=== PATIENT | female | born 1990 | race Caucasian/White ===

== ENCOUNTER 2016-11-01 16:22 | Emergency (ER) | payer OTHER ==
[~2016-11-01] VITALS: Ht 160 cm; Wt 79.4 kg
--- NOTE | ~2016-11-01 | CR72 ---
[facility] A Service of [facility] & [facility] RADIOLOGY TEXT RESULTS PATIENT: CL LOCK LOCATION: [facility] : 89 UNIT #: [id number] AGE: [address]: Epi Snider MD SEX: F ORDER DR: [id number] [facility] [address] [place], [place] [address] [id number] MR#: [id number] Acc #: [id number] NAME: CL LOCK : 1990 SEX: F STUDY DATE/TIME: 11/01/2016 20:06 UNIT: [facility] ROOM: STUDY DESCRIPTION: CR Chest Single View Portable Attending Physician: Epi Snider M.D. Ordering Physician: Epi Snider M.D. Primary Care Physician: Joseph Corona MEDICAL IMAGING REPORT This report is preliminary unless electronic signature is present EXAM Portable chest 11/01/2016 HISTORY Chest pain, chest tightness and shortness breath beginning 4 days ago. FINDINGS A single AP portable view of the chest shows both lungs to be clear. The heart is normal in size. The mediastinal contour is normal. No significant bone abnormalities are seen. IMPRESSION Normal portable chest. Dictated by... Selvin Melgoza M.D. THIS IS AN ELECTRONICALLY VERIFIED REPORT Selvin Melgoza M.D. at 11/02/2016 2:14 PM EMERSON/bulmaro TD: 11/02/2016 10:41 JOB #: [id number] MEDICAL IMAGING REPORT Page 1 of 1 COPY
--- NOTE | ~2016-11-01 | EKG ---
PATIENT: CL LOCK UNIT #: [id number] Ventricular Rate: 77 BPM Atrial Rate: 77 BPM P-R Interval: 164 ms QRS Duration: 80 ms Q-T Interval: 432 ms QTC Calculation(Bezet): 488 ms P [place]: 37 degrees Calculated R [place]: 23 degrees Calculated T [place]: 25 degrees Diagnosis Line: Normal sinus rhythm Diagnosis Line: Prolonged QT Diagnosis Line: Abnormal ECG Diagnosis Line: No previous ECGs available Diagnosis Line: Confirmed by LINO DORADO MD ([id number]) on Diagnosis Line: 11/02/2016 5:08:24 PM INTERPRETING MD: ESTRADA WANG
[2016-11-01 19:58] LABS: BASOPHIL% 0.3 % (0-2.5); EOSINOPHIL# 0.1 X10e3 (0-0.7); EOSINOPHIL% 0.7 % (0.0-7.0); HEMATOCRIT 43.3 % (35.0-45.0); HEMOGLOBIN 15.1 gm/dL (12.0-16.0); LYMPHOCYTE# 3.8 X10e3 (1.0-3.5); LYMPHOCYTE% 32.2 % (17.0-45.0); MEAN CELL VOLUME 88.9 FL (83-96); MEAN CORPUSCULAR HGB CONC 34.9 g/dL (30-36); MEAN PLATELET VOLUME 8.9 FL (6.5-11.5); MONOCYTE# 0.9 X10e3 (0-1.0); MONOCYTE% 7.2 % (3.0-12.0); NEUTROPHIL% 59.6 % (40-75); PLATELET COUNT 245 X10e3 (140-420); RED BLOOD COUNT 4.87 X10e (3.90-5.30); WHITE BLOOD COUNT 11.8 X10e3 (4.0-10.5)
[2016-11-01 20:03] LABS: DIFF IND NO
[2016-11-01 20:19] LABS: POC - CKMB <1.0 ng/mL (0.0-7.9); POC - TROPONIN <0.05 ng/mL (<=0.05)
[2016-11-01 20:23] LABS: BILIRUBIN, DIRECT 0.1 mg/dL (0.0-0.2); BILIRUBIN,INDIRECT 0.6 mg/dL (0.0-0.9); BILIRUBIN,TOTAL 0.7 mg/dL (0.2-2.0); BUN/CREATININE RATIO 16.66; CALCIUM SERUM 9.3 mg/dL (8.4-10.2); CREATININE SERUM 0.6 mg/dL (0.6-1.4); GLOM FILT RATE Estimated 127.6 mL/min (>60); MAGNESIUM 2.2 mg/dL (1.6-3.0); POTASSIUM 3.1 mmol/L (3.5-5.1); PROTEIN TOTAL SERUM 8.1 g/dL (6.0-8.3)
== END 2016-11-01 21:05 | disposition home or self-care (01) ==
LOC: CED 16:22
PROVIDERS: Emergency Medicine
DX: R07.2 Precordial pain (principal); F41.9 Anxiety disorder, unspecified; E87.6 Hypokalemia; F17.200 Nicotine dependence, unspecified, uncomplicated
CPT/HCPCS: 36415; 71010; 80048; 80076; 82553; 83735; 84443; 84484; 84703; 85025; 93005; 96374; 99285; J2060

== ENCOUNTER → 2016-12-15 | Outpatient (CLI) | payer OTHER | END | disposition home or self-care (01) | LOC: CECH 13:22 | DX: R07.9 Chest pain, unspecified (principal); R00.2 Palpitations; R06.02 Shortness of breath; I51.7 Cardiomegaly | CPT/HCPCS: 93306 ==